=== PATIENT | male | born 1975 | race Caucasian/White ===

== ENCOUNTER 2024-04-28 12:47 | Inpatient (IN) | payer OTHER ==
[~2024-04-28] VITALS: Ht 177.8 cm; Wt 108.1 kg
[~2024-04-28 12:47] MED LIST: MONT10T PO; Norco 5-325 Ta1 EACH PO; Prednisone20 MG PO
[2024-04-28 14:12] LABS: BASOPHILS ABSOLUTE AUTO 0.05 K/mm3 (0.00-0.23); BASOPHILS PERCENT AUTO 0 % (0-2); EOSINOPHILS ABSOLUTE AUTO 0.03 K/mm3 (0.00-0.68); EOSINOPHILS PERCENT AUTO 0 % (0-6); Hematocrit 37.7 % (37.0-53.0); Hemoglobin 12.7 g/dL (13.5-17.5); IMMATURE GRAN ABSOLUTE AUTO 0.12 K/mm3 (0.00-0.10); IMMATURE GRAN PERCENT AUTO 1 % (0-1); LYMPHOCYTES ABSOLUTE AUTO 2.03 K/mm3 (0.84-5.20); LYMPHOCYTES PERCENT AUTO 12 % (21-46); MONOCYTES ABSOLUTE AUTO 1.36 K/mm3 (0.16-1.47); MONOCYTES PERCENT AUTO 8 % (4-13); Mean Corpuscular HGB 31.8 pg (26.0-34.0); Mean Corpuscular HGB Conc 33.7 g/dL (31.5-36.5); Mean Corpuscular Volume 95 fL (80-100); Mean Platelet Volume 10.4 fL (9.1-12.4); NEUTROPHILS ABSOLUTE AUTO 13.02 K/mm3 (1.96-9.15); NEUTROPHILS PERCENT AUTO 78 % (41-73); Platelet Count 254 K/mm3 (150-400); RDW Coefficient Variation 13.5 % (11.7-14.2); RDW Standard Deviation 46.9 fL (35.1-46.3); Red Blood Cell Count 3.99 M/mm3 (4.30-5.90); White Blood Cell Count 16.61 K/mm3 (4.00-11.30)
[2024-04-28 14:38] LABS: Albumin, Blood 2.8 g/dL (3.4-5.0); Albumin/Globulin Ratio 0.8 (0.8-1.8); Bilirubin, Total 0.7 mg/dL (0.1-1.0); Bun/Creatinine Ratio 21.4 (12.0-20.0); Calcium, Blood 8.3 mg/dL (8.5-10.1); Creatinine, Blood 0.89 mg/dL (0.60-1.20); Globulin, Blood 3.4 g/dL (2.2-4.0); Potassium, Blood 2.8 mmol/L (3.5-5.5); Total Protein, Blood 6.2 g/dL (6.4-8.2)
[2024-04-28] MEDS ORDERED: NS 1,000 ML IV SCH ×2 (17:10→20:00)
[2024-04-28] MEDS ORDERED: Ketorolac Tromethamine 15mg Vial IV ONE (17:15)
[2024-04-28] MEDS ORDERED: Doxycycline Hyclate 100 MG in Dextrose 5% 250 ML IV ONE (17:15)
[2024-04-28] MEDS ORDERED: CefTRIAXone Sodium 2,000 MG in NS 100 ML IV ONE (17:15)
[2024-04-28] MEDS ORDERED: PREG75 PO (18:47)
[2024-04-28] MEDS ORDERED: THERA-D2000 UNIT PO (18:47)
[2024-04-28] MEDS ORDERED: ALLO100 PO (18:48)
[2024-04-28] MEDS ORDERED: TIZA4 PO (18:48)
[2024-04-28] MEDS ORDERED: IBUP800 PO (18:48)
[2024-04-28] MEDS ORDERED: AMLO5 PO (18:49)
[2024-04-28] MEDS ORDERED: CYCL10 PO (18:49)
[2024-04-28] MEDS ORDERED: Prinivil10 MG PO (18:49)
[2024-04-28] MEDS ORDERED: Ondansetron HCl 2 MG / ML 2ML Vial IV PRN (19:55)
[2024-04-28] MEDS ORDERED: Acetaminophen 325 MG TABLET PO PRN (19:55)
[2024-04-28] MEDS ORDERED: Ipratropium/Albuterol SulF 2.5-0.5MG/3 ML Amp INH PRN (20:00)
[2024-04-28] MEDS ORDERED: Enoxaparin 40 MG/0.4 ML SYR SC SCH (20:00)
[2024-04-28] MEDS ORDERED: MethylPREDNISolone Sod Succ 125 MG Vial IV SCH (20:00)
[2024-04-28] MEDS ORDERED: Piperacillin/Tazobactam Sod 4.5 GM in NS 100 ML IV ONE (20:05)
[2024-04-28] MEDS ORDERED: Vancomycin HCL 1,750 MG in NS 500 ML IV ONE (20:10)
[2024-04-28] MEDS ORDERED: Azithromycin 500 MG in NS 250 ML IV SCH (21:00)
[2024-04-28] MEDS ORDERED: Potassium Chl 20MEQ/Water100ML 100 ML IV SCH (21:00)
[2024-04-28 21:50] LABS: Influenza A, PCR NEGATIVE (NEGATIVE); Influenza B, PCR NEGATIVE (NEGATIVE); Resp Syncytial Virus, PCR NEGATIVE (NEGATIVE); SARS-Cov-2 (COVID-19) PCR, MMC NEGATIVE (NEGATIVE)
[2024-04-28 22:13] VITALS: BP 167/100
[2024-04-28] MEDS ORDERED: FLONASE ALLERG9.9 ML (22:56)
[2024-04-28] MEDS ORDERED: ALBU2.5V5 INH (22:57)
[2024-04-28] MEDS ORDERED: TIOT18 INH (22:57)
[2024-04-28] MEDS ORDERED: MOME220I INH (22:58)
[2024-04-28] MEDS ORDERED: HYDROcodone 5-APAP 325 TAB PO PRN (23:25)
[2024-04-29] VITALS (9 sets, daily range): BP systolic 141–184; BP diastolic 92–117
[2024-04-29] MEDS ORDERED: Furosemide 10 MG/ML 4ML Vial IV ONE (01:40)
[2024-04-29] MEDS ORDERED: Furosemide 10 MG / ML 2ML Vial IV ONE (01:45)
--- NOTE | 2024-04-29 01:47 | NUR ---
ER ADMIT- Arrived at 2210 with BL pna/asthma exacerbation. C/o Left lef pain/swelling neg for DVT. CTA neg for PE, NSR on telemetry. bumped up to 4LNC due to hypoxia on 2LNC. PRN neb administered by RT. BL crackles in both lungs- received several antibiotics in ER and has 3+ LE edema- cone machine operator ordered lasix x 1. BP meds resumed due to htn, gave ok to give early if patient remains hypertensive after lasix administration. Patient very talkative and encouraged to rest/breath. PRN Gilmore given for L leg sciatica which is making the patient very uncomfortable.
--- NOTE | 2024-04-29 03:21 | NUR ---
Shift update- Patient got OOB to use the bathroom and took off oxygen- desats to 83% on RA and visibly SHob, extension tubing applied, educated to keep O2 on at all times. Patient saying PRN hydrocodone ineffective for sciatica. Due to patient's hypoxia and SHob encouraged to utilize non-phamaceutical pain control methods such as ice packs, repositoning, and encouraged to voice his concerns with the day physician since his sciatica is an ongoing issue.
[2024-04-29] MEDS ORDERED: Lisinopril 10 MG Tab PO SCH ×2 (04:00→09:00)
[2024-04-29] MEDS ORDERED: AmLODIPine Besylate 5 MG Tab PO SCH ×2 (04:00→09:00)
[2024-04-29 04:02] LABS: BASOPHILS ABSOLUTE AUTO 0.02 K/mm3 (0.00-0.23); BASOPHILS PERCENT AUTO 0 % (0-2); EOSINOPHILS PERCENT AUTO 0 % (0-6); Hematocrit 42.6 % (37.0-53.0); IMMATURE GRAN ABSOLUTE AUTO 0.05 K/mm3 (0.00-0.10); IMMATURE GRAN PERCENT AUTO 0 % (0-1); LYMPHOCYTES ABSOLUTE AUTO 0.37 K/mm3 (0.84-5.20); LYMPHOCYTES PERCENT AUTO 3 % (21-46); MONOCYTES ABSOLUTE AUTO 0.35 K/mm3 (0.16-1.47); MONOCYTES PERCENT AUTO 3 % (4-13); Mean Corpuscular HGB 31.4 pg (26.0-34.0); Mean Corpuscular HGB Conc 32.9 g/dL (31.5-36.5); Mean Corpuscular Volume 96 fL (80-100); Mean Platelet Volume 10.2 fL (9.1-12.4); NEUTROPHILS ABSOLUTE AUTO 11.72 K/mm3 (1.96-9.15); NEUTROPHILS PERCENT AUTO 94 % (41-73); Platelet Count 241 K/mm3 (150-400); RDW Coefficient Variation 13.6 % (11.7-14.2); RDW Standard Deviation 47.9 fL (35.1-46.3); Red Blood Cell Count 4.46 M/mm3 (4.30-5.90); White Blood Cell Count 12.51 K/mm3 (4.00-11.30)
[2024-04-29 04:23] LABS: Albumin, Blood 2.8 g/dL (3.4-5.0); Albumin/Globulin Ratio 0.7 (0.8-1.8); Bilirubin, Total 0.8 mg/dL (0.1-1.0); Bun/Creatinine Ratio 26.7 (12.0-20.0); Calcium, Blood 8.6 mg/dL (8.5-10.1); Creatinine, Blood 0.75 mg/dL (0.60-1.20); Globulin, Blood 4.1 g/dL (2.2-4.0); Potassium, Blood 3.5 mmol/L (3.5-5.5); Total Protein, Blood 6.9 g/dL (6.4-8.2)
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
[2024-04-29] MEDS ORDERED: Piperacillin/Tazobactam Sod 4.5 GM in NS 100 ML IV SCH (06:00)
[2024-04-29] MEDS ORDERED: Vancomycin HCL 1,250 MG in NS 250 ML IV SCH (06:00)
--- NOTE | 2024-04-29 06:51 | NUR ---
Patient woke up SHob- sat up and started messing with cords/linen/stuff on his table and had GARCIA- encouraged to rest his lungs and rest again. O2 supplementation increased to 4LNC to meet O2 needs. RT called to request a breathing treatment, will be by when able. Audible crackles due to BL PNA continue. Reinforcement needed when it comes to educating the patient on conserving his energy.
[2024-04-29] MEDS ORDERED: Insulin Human Lispro 100 Units/ML 3ML Syringe SC SCH (07:30)
--- NOTE | 2024-04-29 08:25 | NUR ---
DR GRIGGS CALLED TO BEDSIDE, IV FLUIDS ARE D/C AT THIS TIME, NEW ORDERS ARE PLACED BY DR WOOTEN
[2024-04-29] MEDS ORDERED: Furosemide 10 MG/ML 4ML Vial IV SCH ×2 (09:00→18:00)
[2024-04-29] MEDS ORDERED: Pregabalin 75 MG Cap PO SCH (09:00)
[2024-04-29] MEDS ORDERED: Ketorolac Tromethamine 30mg Vial IM ONE (09:00)
[2024-04-29 16:05] LABS: Bun/Creatinine Ratio 28.6 (12.0-20.0); Calcium, Blood 8.9 mg/dL (8.5-10.1); Creatinine, Blood 0.84 mg/dL (0.60-1.20); Potassium, Blood 3.4 mmol/L (3.5-5.5)
[2024-04-29] MEDS ORDERED: Potassium Chloride 20 MEQ TabCR PO ONE (16:25)
[2024-04-29] MEDS ORDERED: TiZANidine HCl 4 MG Tab PO PRN (16:30)
[2024-04-29] MEDS ORDERED: CefTRIAXone Sodium 1,000 MG in NS 100 ML IV SCH (18:00)
[2024-04-29] MEDS ORDERED: Montelukast Sodium 10 MG Tab PO SCH (21:00)
[2024-04-29] MEDS ORDERED: Lactobacil 2-S.Thermo-Bifido 1 1 Cap PO SCH (21:00)
[2024-04-29 21:57] LABS: Vancomycin, Trough 20.5 ug/mL (5.0-10.0)
[2024-04-29] MEDS ORDERED: Vancomycin HCL 1,500 MG in NS 250 ML IV SCH (23:00)
[2024-04-30] VITALS (7 sets, daily range): BP systolic 140–185; BP diastolic 98–122
--- NOTE | 2024-04-30 02:31 | NUR ---
SHIFT SUMMARY NEURO: SCIATICA PAIN IN L LEG OTHERWISE WNL CARDIAC: TACHY AND HYPERTENSIVE. 12 BEAT RUN OF VTACH. MAG AND LABS BEING DRAWN IN AM. NO CP. +2 PITTING EDEMA BLE LUNGS: COARSE UPPER LOBES. ON 4L NC. USING FLUTTER VALVE. NO WHEEZES HEARD THIS SHIFT. GI/: WNL SKIN: FLUSHED. DRY. VANC TROUGH ELEVATED, DOSE ADJUSTED. PT REFUSING NEW IV AT THIS TIME. HEATING PAD APPLIED FOR SCIATICA PAIN WITH RELIEF PER PT.
[2024-04-30 03:57] LABS: BASOPHILS ABSOLUTE AUTO 0.02 K/mm3 (0.00-0.23); BASOPHILS PERCENT AUTO 0 % (0-2); EOSINOPHILS ABSOLUTE AUTO 0.01 K/mm3 (0.00-0.68); EOSINOPHILS PERCENT AUTO 0 % (0-6); Hemoglobin 13.8 g/dL (13.5-17.5); IMMATURE GRAN ABSOLUTE AUTO 0.09 K/mm3 (0.00-0.10); IMMATURE GRAN PERCENT AUTO 1 % (0-1); LYMPHOCYTES PERCENT AUTO 3 % (21-46); MONOCYTES ABSOLUTE AUTO 0.69 K/mm3 (0.16-1.47); MONOCYTES PERCENT AUTO 4 % (4-13); Mean Corpuscular HGB 31.7 pg (26.0-34.0); Mean Corpuscular HGB Conc 32.9 g/dL (31.5-36.5); Mean Corpuscular Volume 97 fL (80-100); Mean Platelet Volume 10.5 fL (9.1-12.4); NEUTROPHILS ABSOLUTE AUTO 16.31 K/mm3 (1.96-9.15); NEUTROPHILS PERCENT AUTO 92 % (41-73); Platelet Count 269 K/mm3 (150-400); RDW Coefficient Variation 13.6 % (11.7-14.2); RDW Standard Deviation 48.6 fL (35.1-46.3); Red Blood Cell Count 4.35 M/mm3 (4.30-5.90); White Blood Cell Count 17.72 K/mm3 (4.00-11.30)
[2024-04-30 04:56] LABS: Bun/Creatinine Ratio 31.7 (12.0-20.0); Calcium, Blood 8.9 mg/dL (8.5-10.1); Creatinine, Blood 0.88 mg/dL (0.60-1.20); Magnesium, Blood 2.3 mg/dL (1.6-2.4); Phosphorus, Blood 3.9 mg/dL (2.5-4.9); Potassium, Blood 4.1 mmol/L (3.5-5.5)
[2024-04-30] MEDS ORDERED: Lisinopril 10 MG Tab PO ONE (09:00)
[2024-04-30] MEDS ORDERED: AmLODIPine Besylate 5 MG Tab PO SCH ×2 (09:00)
[2024-04-30] MEDS ORDERED: Allopurinol 100 MG Tab PO SCH (09:00)
[2024-04-30] MEDS ORDERED: Lisinopril 20 MG Tab PO SCH (09:00)
[2024-04-30] MEDS ORDERED: Ketorolac Tromethamine 30mg Vial IM PRN (09:30)
--- NOTE | 2024-04-30 10:39 | NUR ---
DURING MORNING ASSESSMENT WITH DR BURGOS PT WAS NOTED TO BE RESTING WITH EYES CLOSED, NADN WITH SPO2 96% WITH BIPAP IN PLACE. PT WAS AWOKEN FROM SLEEP BY DR BURGOS PT IMMEDIATELY BEGAN SCREAMING STATING THAT SCIATIC PAIN WAS VERY INTENSE, HE IS YELLING AT STAFF "I NEED SHOT, I'M REALLY IN PAIN" HE BEGIN HYPERVENTILATING AND MOVING AROUND IN BED. NONE OF THISE CURRENT BEHAVIOR WAS NOTED PRIOR TO PT BEING WOKEN UP. DR BEGAN WITH ASKING PSYCH QUESTIONS PT BECAME VERY DEFENSIVE ABOUT THESE QUESTIONS. PT ASKED TO BE TAKEN OFF OF BIPAP AND TO BE PLACED ON NASAL CANNULA, SPO2 WAS DIFFICULT TO MAINTAIN GREATER THAN 87% ON NASAL CANNULA PT IS REULCATANT TO BE RETURNED TO BIPAP.
[2024-04-30] MEDS ORDERED: Atenolol 25 MG Tab PO SCH (13:00)
--- NOTE | 2024-04-30 13:28 | NUR ---
PT IS CURRENTLY RESTING WITH EYES CLOSED POSITIONED ON RIGHT SIDE. HE IS ON BIPAP AT THIS TIME WHICH HE APPEARS TO BE TOLERATING WELL. SPO2 92% AT THE TIME OF THIS NOTE, HR [address] BOBO IS CALLED AT THIS TIME TO ENQUIRE ABOUT ANXIETY MEDICATIONS NEEDED, HE WILL BE PLACING NEW ORDERS FOR ANXIETY
[2024-04-30] MEDS ORDERED: CefTRIAXone Sodium 1,000 MG in NS 100 ML IV SCH (16:00)
[2024-04-30] MEDS ORDERED: Azithromycin 500 MG in NS 250 ML IV SCH (16:00)
[2024-04-30] MEDS ORDERED: HyDROXyzine HCl 25 MG Tab PO ONE (16:15)
--- NOTE | 2024-04-30 18:17 | NUR ---
PT IS NOW RESTING WELL IN BED WATCHING TV WITH S/O. VSS. BLOOD PRESSURE HAS DECREASED SINCE STARTING ATENOLOL. HE IS NOW ON 6L O2 VIA NASAL CANNULA WHICH HE IS TOLERATING WELL
[2024-04-30] MEDS ORDERED: Ipratropium/Albuterol SulF 2.5-0.5MG/3 ML Amp INH SCH (19:00)
[2024-04-30] MEDS ORDERED: GuaiFENesin 600 MG TabCR PO PRN (23:30)
[2024-05-01] VITALS (10 sets, daily range): BP systolic 135–184; BP diastolic 68–116
[2024-05-01] MEDS ORDERED: HydrALAZINE HCl 20 MG / ML 1ML Vial IV ONE (01:00)
[2024-05-01 04:11] LABS: BASOPHILS ABSOLUTE AUTO 0.02 K/mm3 (0.00-0.23); BASOPHILS PERCENT AUTO 0 % (0-2); EOSINOPHILS PERCENT AUTO 0 % (0-6); Hematocrit 37.7 % (37.0-53.0); Hemoglobin 12.5 g/dL (13.5-17.5); IMMATURE GRAN ABSOLUTE AUTO 0.13 K/mm3 (0.00-0.10); IMMATURE GRAN PERCENT AUTO 1 % (0-1); LYMPHOCYTES ABSOLUTE AUTO 0.57 K/mm3 (0.84-5.20); LYMPHOCYTES PERCENT AUTO 3 % (21-46); MONOCYTES ABSOLUTE AUTO 0.74 K/mm3 (0.16-1.47); MONOCYTES PERCENT AUTO 4 % (4-13); Mean Corpuscular HGB 31.6 pg (26.0-34.0); Mean Corpuscular HGB Conc 33.2 g/dL (31.5-36.5); Mean Corpuscular Volume 95 fL (80-100); Mean Platelet Volume 10.6 fL (9.1-12.4); NEUTROPHILS ABSOLUTE AUTO 16.39 K/mm3 (1.96-9.15); NEUTROPHILS PERCENT AUTO 92 % (41-73); Platelet Count 268 K/mm3 (150-400); RDW Coefficient Variation 13.8 % (11.7-14.2); RDW Standard Deviation 48.7 fL (35.1-46.3); Red Blood Cell Count 3.95 M/mm3 (4.30-5.90); White Blood Cell Count 17.85 K/mm3 (4.00-11.30)
[2024-05-01] MEDS ORDERED: Furosemide 10 MG/ML 4ML Vial IV SCH (09:00)
--- NOTE | 2024-05-01 09:45 | NUR ---
UPDATE PT RESTING ON HIS SIDE WITH BIPAP ON AT 10 50% FIO2. RR 20'S. HR 80'S. THIS RN WAKES PATIENT TO GIVEN AM MEDS. PT TAKEN OFF BIPAP AND PLACED ON 15L NC. ORAL CARE DONE WITH ASSISTANCE. O2 SATS DROP TO MID 80'S. PT REQUESTING BIPAP BE PUT BACK ON. PT TOOK APPROXIMATELY 10 MINUTES FOR SATS TO COME UP TO 90%.
[2024-05-01 10:22] LABS: SARS-Cov-2 (COVID-19) PCR, MMC NEGATIVE (NEGATIVE)
[2024-05-01] MEDS ORDERED: Azithromycin 250 MG Tab PO SCH (11:00)
[2024-05-01 11:28] LABS: Adenovirus Not Detected (NOT DETECT); Bordetella pertussis Not Detected (NOT DETECT); Chlamydophila pneumoniae Not Detected (NOT DETECT); Coronavirus 229E Not Detected (NOT DETECT); Coronavirus HKU1 Not Detected (NOT DETECT); Coronavirus NL63 Not Detected (NOT DETECT); Coronavirus OC43 Not Detected (NOT DETECT); Human Metapneumovirus Not Detected (NOT DETECT); Human Rhinovirus/Enterovirus Not Detected (NOT DETECT); Influenza A/2009-H1 Not Detected (NOT DETECT); Influenza A/H1 Not Detected (NOT DETECT); Influenza A/H3 Not Detected (NOT DETECT); Influenza B Not Detected (NOT DETECT); Mycoplasma pneumoniae Not Detected (NOT DETECT); Parainfluenza Virus 1 Not Detected (NOT DETECT); Parainfluenza Virus 2 Not Detected (NOT DETECT); Parainfluenza Virus 3 Not Detected (NOT DETECT); Parainfluenza Virus 4 Not Detected (NOT DETECT); Respiratory Syncytial Virus Not Detected (NOT DETECT); SARS-Cov-2 (COVID-19), BioFire Not Detected (NOT DETECT)
[2024-05-01] MEDS ORDERED: Vancomycin HCL 1,750 MG in NS 500 ML IV ONE (11:50)
[2024-05-01] MEDS ORDERED: Piperacillin/Tazobactam Sod 4.5 GM in NS 100 ML IV SCH (12:00)
[2024-05-01] MEDS ORDERED: Metolazone 5 MG Tab PO SCH (12:00)
[2024-05-01] MEDS ORDERED: NS 250 ML IV PRN (12:05)
[2024-05-01] MEDS ORDERED: Furosemide 10 MG / ML 2ML Vial IV SCH (15:00)
--- NOTE | 2024-05-01 16:59 | NUR ---
SHIFT SUMMARY PT REMAINS ALERT AND ORIENTED. BP REMAINS ELEVATED, BUT IMPROVED. HR REMAINS NSR 80'S. PT HAS BEEN ON BIPAP ALL SHIFT SETTINGS NOW 10/8 60% FIO2. RR 20-30'S. PT SITTING UP AT EDGE OF BED MOST OF AFTERNOON. [place] [facility] [place]. PT TOOK 10-15 MIN TO RECOVER FROM ACTIVITY AND SATS TO COME ABOVE 90%. PT COMPLAINED OF PAIN TO "SCIATICA" ON AND OFF THROUGHOUT SHIFT. PT MEDICATED FOR PAIN AND HEATING PAD APPLIED REQUESTED. PT VOIDING USING URINAL AT BEDSIDE. WILL CONTINUE PLAN OF CARE UNTIL REPORT OFF TO ONCOMING RN
[2024-05-01] MEDS ORDERED: Pregabalin 75 MG Cap PO SCH (21:00)
[2024-05-02] VITALS (21 sets, daily range): BP systolic 123–162; BP diastolic 77–99
[2024-05-02] MEDS ORDERED: Vancomycin HCL 1,500 MG in NS 250 ML IV SCH (01:00)
[2024-05-02 04:35] LABS: BASOPHILS ABSOLUTE AUTO 0.02 K/mm3 (0.00-0.23); BASOPHILS PERCENT AUTO 0 % (0-2); EOSINOPHILS ABSOLUTE AUTO 0.01 K/mm3 (0.00-0.68); EOSINOPHILS PERCENT AUTO 0 % (0-6); Hematocrit 38.6 % (37.0-53.0); Hemoglobin 12.9 g/dL (13.5-17.5); IMMATURE GRAN ABSOLUTE AUTO 0.05 K/mm3 (0.00-0.10); IMMATURE GRAN PERCENT AUTO 0 % (0-1); LYMPHOCYTES ABSOLUTE AUTO 1.29 K/mm3 (0.84-5.20); LYMPHOCYTES PERCENT AUTO 9 % (21-46); MONOCYTES ABSOLUTE AUTO 0.62 K/mm3 (0.16-1.47); MONOCYTES PERCENT AUTO 4 % (4-13); Mean Corpuscular HGB Conc 33.4 g/dL (31.5-36.5); Mean Corpuscular Volume 96 fL (80-100); Mean Platelet Volume 10.6 fL (9.1-12.4); NEUTROPHILS ABSOLUTE AUTO 12.28 K/mm3 (1.96-9.15); NEUTROPHILS PERCENT AUTO 86 % (41-73); Platelet Count 252 K/mm3 (150-400); RDW Coefficient Variation 13.5 % (11.7-14.2); RDW Standard Deviation 48.1 fL (35.1-46.3); Red Blood Cell Count 4.03 M/mm3 (4.30-5.90); White Blood Cell Count 14.27 K/mm3 (4.00-11.30)
[2024-05-02 04:54] LABS: Calcium, Blood 8.4 mg/dL (8.5-10.1); Creatinine, Blood 1.09 mg/dL (0.60-1.20); Potassium, Blood 3.4 mmol/L (3.5-5.5)
--- NOTE | 2024-05-02 05:17 | NUR ---
PT REQUESTING NERVE BLOCK TO MANAGE SCIATIC PAIN
--- NOTE | 2024-05-02 06:02 | NUR ---
SHIFT SUMMARY NEURO; A/OX4 CARDIAC: HTN, +2 BLE EDEMA LUNGS: BIPAP SETTINGS INCREASED. PT RECIEVING FREQUENT RESCUE BREATHS WITH 100%. RESPIRATORY AWARE. GI/: EXTERNAL CATHETER IN PLACE DT SOB POWER GLIDE PLACED. PT REQUESTING CHIROPRACTOR AND A NERVE BLOCK FOR LEFT LED. PT IS ADAMANT IT IS SCIATIC PAIN. PRN'S GIVEN.
--- NOTE | 2024-05-02 06:36 | NUR ---
ARRIVAL FROM PCU PT ARRIVED FROM PCU AT APPROX 0630, REPORT GIVEN AT BEDSIDE. PT A/O X4, ANXIOUS. PT COMPLAINING OF SEVERE PAIN IN LEFT BACK, PT STATES ITS HIS SCIATICA. PT ON BIPAP, SETTINGS 16/12 FiO2 100%. O2 SATS > 90%. LUNGS COARSE T/O. PT TACHYPNEIC UPON ARRIVAL. CARDIAC MONITORING REFLECTS NSR, HR 80s. SBP 130s. PG TO RY AND PIV PATENT. BLE +2 EDEMA.
[2024-05-02] MEDS ORDERED: Potassium Chloride 10 Meq Tablet SA PO ONE (07:25)
[2024-05-02] MEDS ORDERED: Potassium Chl 20MEQ/Water100ML 100 ML IV STA (08:24)
[2024-05-02] MEDS ORDERED: MethylPREDNISolone Sod Succ 40 MG VIAL IV SCH (09:00)
[2024-05-02] MEDS ORDERED: MethylPREDNISolone Sod Succ 125 MG Vial IV SCH (09:00)
[2024-05-02 12:33] LABS: Albumin, Blood 2.2 g/dL (3.4-5.0); Anion Gap 11 mmol/L (3-11); Blood Urea Nitrogen 32 mg/dL (8-24); Bun/Creatinine Ratio 32.7 (12.0-20.0); CO2, Blood 30 mmol/L (21-32); Calcium, Blood 8.3 mg/dL (8.5-10.1); Chloride, Blood 101 mmol/L (98-108); Creatinine, Blood 0.98 mg/dL (0.60-1.20); Glomerular Filtration Rate 95 (60-); Glucose, Blood 120 mg/dL (70-99); Magnesium, Blood 1.9 mg/dL (1.6-2.4); Phosphorus, Blood 3.4 mg/dL (2.5-4.9); Potassium, Blood 3.7 mmol/L (3.5-5.5); Sodium, Blood 138 mmol/L (136-145)
[2024-05-02] MEDS ORDERED: Nystatin 100,000 Unit/ML Susp 5 ML UDC PO SCH (13:00)
[2024-05-02] MEDS ORDERED: Pantoprazole Sodium 40 MG Injection IV SCH (13:05)
--- NOTE | 2024-05-02 18:55 | NUR ---
DAY SHIFT SUMMARY PT HAS REMAINED ALERT AND ORIENTED THIS SHIFT. PT W SEVERE PAIN IN HIS LOWER BACK THIS AM BUT HE REPORTED RELIEF LATER IN THE SHIFT AFTER RECIEVING APIN MEDICATIONS INCLUDING TORADOL. PT WORE BIPAP 16/12 W 80% FIO2 MOST OF THE DAY TAKING BREAKS W AIRVO 60L AND 94% FOR MEALS AND MEDS. PT DOES DEATS INTO THE 70'S W ACTIVITYBUT RECOVERS W REST ON THE BIPAP. BP STABLE. MONITOR SHOWING SR 70'S-80'S THIS SHIFT. PT AFEBRILE THIS SHIFT. PT TOLERATING PO INTAKE WELL. AM LOVENOX HELD DUE TO HEMATOMA ON HIS ABDOMEN PER DR. NASH. WILL REPORT TO ONCOMING RN.
--- NOTE | 2024-05-02 20:00 | NUR ---
ASSUMED CARE CARE WAS ASSUMED AT PT AT APPROX 1900. PT A/O X4, ABLE TO ANSWER QUESTIONS APPROPRIATELY. PT ABLE TO REPOSITION IN BED INDEPENDENTLY. MALE PUREWICK IN PLACE. PT ON BIPAP, 01/08, FiO2 70%. O2 SATS > 90%. CARDIAC MONITORING REFLECTS NSR, HR 70s. SBP 130s-140s. PG TO RY PATENT, NS TKO INFUSING. PIV TO LFA SL. KELSEA HOSE IN PLACE BLE.
[2024-05-03] VITALS (19 sets, daily range): BP systolic 112–196; BP diastolic 68–114
[2024-05-03] MEDS ORDERED: Furosemide 10 MG / ML 2ML Vial IV SCH (05:00)
[2024-05-03 05:51] LABS: BASOPHILS ABSOLUTE AUTO 0.01 K/mm3 (0.00-0.23); BASOPHILS PERCENT AUTO 0 % (0-2); EOSINOPHILS ABSOLUTE AUTO 0.26 K/mm3 (0.00-0.68); EOSINOPHILS PERCENT AUTO 2 % (0-6); Hematocrit 37.5 % (37.0-53.0); Hemoglobin 12.6 g/dL (13.5-17.5); IMMATURE GRAN ABSOLUTE AUTO 0.07 K/mm3 (0.00-0.10); IMMATURE GRAN PERCENT AUTO 1 % (0-1); LYMPHOCYTES ABSOLUTE AUTO 1.12 K/mm3 (0.84-5.20); LYMPHOCYTES PERCENT AUTO 9 % (21-46); MONOCYTES ABSOLUTE AUTO 0.47 K/mm3 (0.16-1.47); MONOCYTES PERCENT AUTO 4 % (4-13); Mean Corpuscular HGB 31.6 pg (26.0-34.0); Mean Corpuscular HGB Conc 33.6 g/dL (31.5-36.5); Mean Corpuscular Volume 94 fL (80-100); Mean Platelet Volume 10.4 fL (9.1-12.4); NEUTROPHILS PERCENT AUTO 85 % (41-73); Platelet Count 224 K/mm3 (150-400); RDW Coefficient Variation 13.2 % (11.7-14.2); RDW Standard Deviation 45.9 fL (35.1-46.3); Red Blood Cell Count 3.99 M/mm3 (4.30-5.90); White Blood Cell Count 13.03 K/mm3 (4.00-11.30)
--- NOTE | 2024-05-03 05:58 | NUR ---
SHIFT SUMMARY NO ACUTE CHANGES THIS SHIFT. PT REMAINS A/O x4, ABLE TO REPOSITION IN BED INDEPENDENTLY AND USE CALL LIGHT APPROPRIATELY. BIPAP SETTINGS 16/12, FiO2 45%. O2 SATS > 90% BUT PT DOES DESATURATE WITH ACTIVITY. CARDIAC MONITORING REFLECTS NSR, HR 90s. MALE PUREWICK IN PLACE. PG TO RY INFUSING NS TKO. PIV SL. PT TOLERATED BREAK FROM BIPAP THIS SHIFT ON AIRVO.
[2024-05-03 06:19] LABS: Bun/Creatinine Ratio 30.7 (12.0-20.0); Calcium, Blood 8.6 mg/dL (8.5-10.1); Creatinine, Blood 1.01 mg/dL (0.60-1.20); Phosphorus, Blood 2.8 mg/dL (2.5-4.9); Potassium, Blood 3.1 mmol/L (3.5-5.5)
[2024-05-03] MEDS ORDERED: Potassium Chloride 20 MEQ TabCR PO ONE ×2 (06:30→10:45)
--- NOTE | 2024-05-03 11:06 | NUR ---
AM NOTE... ASSUMED CARE OF PT AT 0700, PT IS STABLE ON THE BIPAP AT 16/12 AND 45% WITH O2 SATS>90%. PT'S VS STABLE HE IS IN SR INT HE 80'S MAPS>65. PT USES THE AIRVO FOR MEALS AND TAKING PILLS. PT IS ABLE TO TRANSFER TO THE BSC WITH RECOVERY ON THE BIPAP. WILL CONTINUE TO MONITOR.
[2024-05-03 15:37] LABS: Bun/Creatinine Ratio 28.2 (12.0-20.0); Calcium, Blood 8.9 mg/dL (8.5-10.1); Creatinine, Blood 0.92 mg/dL (0.60-1.20); Potassium, Blood 3.8 mmol/L (3.5-5.5)
--- NOTE | 2024-05-03 18:20 | NUR ---
PT ARRIVED TO PCU07 VIA WHEELCHAIR FROM ICU04. PT IS A&OX4, CALM AND COOPERATIVE WITH CARE, PLEASANT. PT'S S.O. AT BEDSIDE. PT ORIENTED TO CALL LIGHT, ROOM AND UNIT ROUTINES. CONTINUOUS TELEMETRY AND PULSE OX IN PLACE. PT DENIES ANY NEEDS. PT IS ABLE TO STAND AND TRANSFER FROM THE WHEELCHAIR TO THE RECLINER CHAIR W/O DIFFICULTY. PT AND S.O. ARE WATCHING TV, NO NEEDS IDENTIFIED. CALL LIGHT IN REACH, CHAIR LOCKED, BED IN LOWEST LOCKED POSITION. WILL CONTINUE TO MONITOR AND GIVE REPORT TO NOC SHIFT RN.
--- NOTE | 2024-05-03 19:07 | NUR ---
PER DR RANDOLPH, HOLD [facility], MEDICINE TEAM WILL RE-EVALUATE NEED IN THE MORNING.
--- NOTE | 2024-05-03 23:33 | NUR ---
CT CHEST ORDER DISCONTINUED- NEED NOT CLARIFIED BY DAY PHYSCIAN, PER CT, CAN BE RE-ORDERED BY DAY PHYSICIAN ON THURSDAY IF MEDICALLY NECESSARY. CT CHEST ALREADY PERFORMED RECENTLY.
[2024-05-04] VITALS (9 sets, daily range): BP systolic 126–180; BP diastolic 69–108
--- NOTE | 2024-05-04 05:20 | NUR ---
SHIFT SUMMARY- PATIENT STARTED OUT WITH 8L HFNC, O2 SATS LABILE BETWEEN LOW 80S-MID 90S DEPENDING ON PATIENT'S ACTIVITY AND WOB. ENCOURAGED TO CONSERVE ENERGY AND LIMIT HIS FLUID INTAKE DUE TO BEING ON LASIX FOR FLUID OVERLOAD. PATIENT REQUESTING BIPAP WHEN HE WENT TO SLEEP- CURRENTLY ON 50% FIO2 O2 SATS WNL. PRN NEBS, SOLUMEDROL, ANTIBIOTICS CONTINUED. PRN NORCO/ZANAFLEX/TORADOL GIVEN X 1 FOR SCIATICA. PLAN IS TO WEAN O2 ABLE AND CONTINUE DIURESIS. PATIENT GETTING OOB WITH SBA.
[2024-05-04 06:34] LABS: Hematocrit 35.8 % (37.0-53.0); Mean Corpuscular HGB 31.3 pg (26.0-34.0); Mean Corpuscular HGB Conc 33.5 g/dL (31.5-36.5); Mean Corpuscular Volume 93 fL (80-100); Mean Platelet Volume 10.8 fL (9.1-12.4); Platelet Count 222 K/mm3 (150-400); RDW Coefficient Variation 12.7 % (11.7-14.2); RDW Standard Deviation 43.7 fL (35.1-46.3); Red Blood Cell Count 3.84 M/mm3 (4.30-5.90); White Blood Cell Count 13.13 K/mm3 (4.00-11.30)
[2024-05-04] MEDS ORDERED: Furosemide 10 MG / ML 2ML Vial IV ONE (06:35)
--- NOTE | 2024-05-04 06:51 | NUR ---
SHIFT UPDATE- PATIENT'S O2 REQUIREMENTS ON BIPAP INCREASING THIS AM- RT AT BEDSIDE, FIO2 UP TO 90% ON BIPAP. COMMERCIAL SERVICE TECHNICIAN RESIDENT NOTIFIED OF LUNG SOUNDS- CRACKLES- POSSIBLE FLUID OVERLOAD AGAIN, ALSO NOTIFIED OF O2 REQUIREMENTS INCREASING. RECEIVED ONE TIME ORDER FOR 20MG IV LASIX. FALAFEL CART COOK ALSO NOTIFIED OF CHANGE IN PATIENT'S STATUS.
[2024-05-04 06:55] LABS: Bun/Creatinine Ratio 24.9 (12.0-20.0); Calcium, Blood 8.5 mg/dL (8.5-10.1); Creatinine, Blood 0.88 mg/dL (0.60-1.20); Potassium, Blood 2.8 mmol/L (3.5-5.5)
[2024-05-04] MEDS ORDERED: Potassium Chloride 20 MEQ TabCR PO ONE ×3 (07:40→17:05)
[2024-05-04] MEDS ORDERED: Potassium Chl 20MEQ/Water100ML 100 ML IV SCH (07:50)
--- NOTE | 2024-05-04 10:36 | NUR ---
ASSUMPTION OF CARE Assumed care at 0700. a/o, mildy anxious, cooperative with care. Repostions independently, occasinal assistance required with line managment. C/o sciatica related pain, treating with postioning and meds as ordered. Skin intact, no breakdown noted. NSR, SBP 130's prior to am meds, no c/o cp/pressure, BLE edema 3+. At intial assesment bipap in place with settings of 18/12, rate 18, fio2 90%, o2 sat low to mid 90's, respiration shallow and rapid with minial exertion. L/s dim t/o, no noted cough. abd obese, bt+, voiding w/o difficutly using urinal. PG RY, abx infusing as scheduled, otherwise s/l. At start of shift pt was experiencing mild respiratory distress, pmd notified, new d/o recieved. IV lasix adminsistered as odrdered, diuresing well. Tolereated short BIPAP break for breakfest and AM meds on 10L NC. Placed back on BIPAP, respiratory status improving, current settings 16/10, rate 18, fio2 60%, o2 sat 90%. pt resting comfortably with BIPAP in place, seen by physicians, K+ replaced as ordered. Pt denies any curretn needs or questions reguarding plan of care, call light in reach, continue to monitor for changes.
[2024-05-04 14:34] LABS: Bun/Creatinine Ratio 21.3 (12.0-20.0); Calcium, Blood 8.7 mg/dL (8.5-10.1); Creatinine, Blood 0.94 mg/dL (0.60-1.20); Potassium, Blood 3.3 mmol/L (3.5-5.5)
[2024-05-04] MEDS ORDERED: Potassium Chloride 20 MEQ TabCR PO SCH (16:00)
[2024-05-04] MEDS ORDERED: Furosemide 10 MG / ML 2ML Vial IV SCH (16:00)
--- NOTE | 2024-05-04 17:32 | NUR ---
Shift Summary: RT continued to titrate down BIPAP seettings t/o shift, respiratory status much improved from this am. Diuresed well, with u/o >3500. Currently oob, in chair having supper. 11L HF NC, O2 sat uppers 80's low 90's. Pt at times not compliant with respiratory treatment reccomendations, possibly due to intermittent anxiety. S/O at bedside, pt and family deny an current questions/needs. Call light in reach, will monitor and give report to juanis RN.
[2024-05-04 22:42] LABS: Bun/Creatinine Ratio 18.8 (12.0-20.0); Calcium, Blood 8.8 mg/dL (8.5-10.1); Creatinine, Blood 1.01 mg/dL (0.60-1.20); Potassium, Blood 3.6 mmol/L (3.5-5.5)
[2024-05-05 03:17] VITALS: BP 151/98
[2024-05-05 04:14] LABS: BASOPHILS ABSOLUTE AUTO 0.02 K/mm3 (0.00-0.23); BASOPHILS PERCENT AUTO 0 % (0-2); EOSINOPHILS ABSOLUTE AUTO 0.72 K/mm3 (0.00-0.68); EOSINOPHILS PERCENT AUTO 8 % (0-6); Hematocrit 37.6 % (37.0-53.0); Hemoglobin 12.2 g/dL (13.5-17.5); IMMATURE GRAN ABSOLUTE AUTO 0.03 K/mm3 (0.00-0.10); IMMATURE GRAN PERCENT AUTO 0 % (0-1); LYMPHOCYTES ABSOLUTE AUTO 1.14 K/mm3 (0.84-5.20); LYMPHOCYTES PERCENT AUTO 12 % (21-46); MONOCYTES ABSOLUTE AUTO 0.56 K/mm3 (0.16-1.47); MONOCYTES PERCENT AUTO 6 % (4-13); Mean Corpuscular HGB Conc 32.4 g/dL (31.5-36.5); Mean Corpuscular Volume 96 fL (80-100); Mean Platelet Volume 10.8 fL (9.1-12.4); NEUTROPHILS ABSOLUTE AUTO 7.12 K/mm3 (1.96-9.15); NEUTROPHILS PERCENT AUTO 74 % (41-73); Platelet Count 242 K/mm3 (150-400); RDW Coefficient Variation 12.8 % (11.7-14.2); RDW Standard Deviation 45.6 fL (35.1-46.3); Red Blood Cell Count 3.93 M/mm3 (4.30-5.90); White Blood Cell Count 9.59 K/mm3 (4.00-11.30)
[2024-05-05 04:48] LABS: Albumin, Blood 2.3 g/dL (3.4-5.0); Albumin/Globulin Ratio 0.6 (0.8-1.8); Bilirubin, Total 1.4 mg/dL (0.1-1.0); Bun/Creatinine Ratio 18.3 (12.0-20.0); Calcium, Blood 8.8 mg/dL (8.5-10.1); Creatinine, Blood 1.15 mg/dL (0.60-1.20); Globulin, Blood 4.1 g/dL (2.2-4.0); Potassium, Blood 3.5 mmol/L (3.5-5.5); Total Protein, Blood 6.4 g/dL (6.4-8.2)
--- NOTE | 2024-05-05 04:55 | NUR ---
SHIFT SUMMARY PT A&O X4, ABLE TO MAKE NEEDS KNOWN, COOPERATIVE WITH CARES, ALTHOUGH HE EXPRESSES FRUSTRATIONS WITH BEING IN THE HOSPITAL. VSS, AFEBRILE, SPO2 >90% 8L HFNC OR BIPAP WITH FIO2 45%. SCIATIC PAIN MEDICATED PER EMAR. PT EDUCATED ON IMPORTANCE OF FLUID RESTRICTION. NO ACUTE EVENTS THIS SHIFT. PT IS RESTING QUIETLY IN BED, CALL LIGHT IN REACH, BREATHING EVEN AND UNLABORED.
[2024-05-05 09:16] VITALS: BP 149/85
--- NOTE | 2024-05-05 10:05 | NUR ---
Pt states that he does not vape.
[2024-05-05] MEDS ORDERED: Ipratropium/Albuterol SulF 2.5-0.5MG/3 ML Amp INH PRN (12:00)
[2024-05-05 12:34] VITALS: BP 127/76
[2024-05-05 16:08] VITALS: BP 145/97
--- NOTE | 2024-05-05 17:11 | NUR ---
Pt was given Tylenol at this time for fever 101
[2024-05-05 19:27] VITALS: BP 137/83
[2024-05-05 20:35] LABS: Bun/Creatinine Ratio 21.8 (12.0-20.0); Calcium, Blood 8.8 mg/dL (8.5-10.1); Creatinine, Blood 1.1 mg/dL (0.60-1.20); Potassium, Blood 3.6 mmol/L (3.5-5.5)
[2024-05-05 23:45] VITALS: BP 167/100
[2024-05-06 03:39] VITALS: BP 145/85
[2024-05-06 04:18] LABS: BASOPHILS ABSOLUTE AUTO 0.02 K/mm3 (0.00-0.23); BASOPHILS PERCENT AUTO 0 % (0-2); EOSINOPHILS ABSOLUTE AUTO 0.67 K/mm3 (0.00-0.68); EOSINOPHILS PERCENT AUTO 6 % (0-6); Hematocrit 37.5 % (37.0-53.0); Hemoglobin 12.5 g/dL (13.5-17.5); IMMATURE GRAN ABSOLUTE AUTO 0.05 K/mm3 (0.00-0.10); IMMATURE GRAN PERCENT AUTO 0 % (0-1); LYMPHOCYTES ABSOLUTE AUTO 0.97 K/mm3 (0.84-5.20); LYMPHOCYTES PERCENT AUTO 8 % (21-46); MONOCYTES ABSOLUTE AUTO 0.68 K/mm3 (0.16-1.47); MONOCYTES PERCENT AUTO 6 % (4-13); Mean Corpuscular HGB 31.4 pg (26.0-34.0); Mean Corpuscular HGB Conc 33.3 g/dL (31.5-36.5); Mean Corpuscular Volume 94 fL (80-100); Mean Platelet Volume 10.3 fL (9.1-12.4); NEUTROPHILS PERCENT AUTO 80 % (41-73); Platelet Count 283 K/mm3 (150-400); RDW Coefficient Variation 12.7 % (11.7-14.2); RDW Standard Deviation 44.4 fL (35.1-46.3); Red Blood Cell Count 3.98 M/mm3 (4.30-5.90); White Blood Cell Count 11.79 K/mm3 (4.00-11.30)
[2024-05-06 04:51] LABS: Albumin, Blood 2.3 g/dL (3.4-5.0); Albumin/Globulin Ratio 0.5 (0.8-1.8); Bilirubin, Total 1.1 mg/dL (0.1-1.0); Bun/Creatinine Ratio 19.2 (12.0-20.0); Calcium, Blood 8.9 mg/dL (8.5-10.1); Creatinine, Blood 1.04 mg/dL (0.60-1.20); Globulin, Blood 4.3 g/dL (2.2-4.0); Potassium, Blood 3.8 mmol/L (3.5-5.5); Total Protein, Blood 6.6 g/dL (6.4-8.2)
--- NOTE | 2024-05-06 05:05 | NUR ---
SHIFT SUMMARY PT A&O X4, ABLE TO MAKE NEEDS KNOWN, COOPERATIVE WITH CARES. VSS, AFEBRILE, SPO2 >90% 8-10L HFNC OR BIPAP WITH FIO2 40%. PT ABLE TO WEAR HFNC FOR MOST OF SHIFT. BACK PAIN MEDICATED PER EMAR. NO ACUTE EVENTS THIS SHIFT. PT IS RESTING QUIETLY IN BED, CALL LIGHT IN REACH, BREATHING EVEN AND UNLABORED.
[2024-05-06 07:54] VITALS: BP 140/86
[2024-05-06 12:15] VITALS: BP 105/64
[2024-05-06 15:13] VITALS: BP 144/91
[2024-05-06] MEDS ORDERED: Furosemide 10 MG / ML 2ML Vial IV SCH (18:00)
--- NOTE | 2024-05-06 18:12 | NUR ---
SHIFT SUMMARY PT A/OX4 AND COOPERATIVE OF CARE. PT ABLE TO EXPRESS NEEDS AND CALLS APPROPIATE. PT INDEPENDENT IN ROOM AND BED. PT HAD SLIGHT FEVER DURING BEGINNING OF SHIFT. OTHER VSS THROUGHOUT SHIFT WITH O2 SATS IN THE 90'S ON 8-12L HFNC. NO REPORT OF CHEST PAIN/PRESSURE THROUGHOUT SHIFT. NO REPORT OF SOB. PT SLEPT FOR HALF OF SHIFT PER PT REQUEST.
[2024-05-06 18:41] LABS: Bun/Creatinine Ratio 17.9 (12.0-20.0); Calcium, Blood 9.1 mg/dL (8.5-10.1); Creatinine, Blood 1.06 mg/dL (0.60-1.20); Potassium, Blood 3.6 mmol/L (3.5-5.5)
[2024-05-06 20:04] VITALS: BP 137/82
[2024-05-06 23:50] VITALS: BP 94/64
[2024-05-07 04:15] LABS: BASOPHILS ABSOLUTE AUTO 0.03 K/mm3 (0.00-0.23); BASOPHILS PERCENT AUTO 0 % (0-2); EOSINOPHILS ABSOLUTE AUTO 0.65 K/mm3 (0.00-0.68); EOSINOPHILS PERCENT AUTO 7 % (0-6); Hematocrit 35.7 % (37.0-53.0); Hemoglobin 11.9 g/dL (13.5-17.5); IMMATURE GRAN ABSOLUTE AUTO 0.02 K/mm3 (0.00-0.10); IMMATURE GRAN PERCENT AUTO 0 % (0-1); LYMPHOCYTES ABSOLUTE AUTO 1.17 K/mm3 (0.84-5.20); LYMPHOCYTES PERCENT AUTO 13 % (21-46); MONOCYTES ABSOLUTE AUTO 0.66 K/mm3 (0.16-1.47); MONOCYTES PERCENT AUTO 8 % (4-13); Mean Corpuscular HGB 31.6 pg (26.0-34.0); Mean Corpuscular HGB Conc 33.3 g/dL (31.5-36.5); Mean Corpuscular Volume 95 fL (80-100); Mean Platelet Volume 10.9 fL (9.1-12.4); NEUTROPHILS ABSOLUTE AUTO 6.32 K/mm3 (1.96-9.15); NEUTROPHILS PERCENT AUTO 72 % (41-73); Platelet Count 295 K/mm3 (150-400); RDW Coefficient Variation 12.9 % (11.7-14.2); RDW Standard Deviation 44.5 fL (35.1-46.3); Red Blood Cell Count 3.77 M/mm3 (4.30-5.90); White Blood Cell Count 8.85 K/mm3 (4.00-11.30)
[2024-05-07 04:50] LABS: Albumin, Blood 2.3 g/dL (3.4-5.0); Albumin/Globulin Ratio 0.5 (0.8-1.8); Bilirubin, Total 0.9 mg/dL (0.1-1.0); Bun/Creatinine Ratio 17.1 (12.0-20.0); Calcium, Blood 8.9 mg/dL (8.5-10.1); Creatinine, Blood 1.11 mg/dL (0.60-1.20); Globulin, Blood 4.3 g/dL (2.2-4.0); Total Protein, Blood 6.6 g/dL (6.4-8.2)
[2024-05-07 04:59] VITALS: BP 133/83
--- NOTE | 2024-05-07 06:52 | NUR ---
PT STABLE THROUGHOUT THE SHIFT. PT TOLERATING O2 AT 8L BY NASAL CANNULA. NO BIPAP NEEDED OVER NIGHT. VITAL SIGNS REMAINED STABLE. PT DOES DESAT WITH EXERTION OR WITH COUGHING AND RECOVERS SLOWLY. NO ACUTE DYSPNEA REPORTED BY PT. PT ABLE TO SPEAK IN FULL SENTENCES. PT REMAINS AOX4, INDEPENDENT AT BEDSIDE. PT DID HAVE GOOD DIURESIS OVER THE SHIFT. POWER GLIDE BLOOD RETURN NOTED AT END OF SHIFT. LUNG SOUNDS IMPROVING.
[2024-05-07 07:25] VITALS: BP 140/88
[2024-05-07 11:15] VITALS: BP 104/72
[2024-05-07] MEDS ORDERED: Potassium Chloride 10 Meq Tablet SA PO SCH (17:00)
[2024-05-07 17:26] VITALS: BP 143/90
--- NOTE | 2024-05-07 17:52 | NUR ---
END OF SHIFT NOTE: NO ACUTE EVENTS TODAY. PT A/OX4, ABLE TO COMMUNICATE NEEDS W/ STAFF. HR 80-90'S, SINUS ON TELE. BP STABLE, MAP >65. DENIES CHEST PAIN/PRESSURE. SPO2 88-92% ON 8-9L VIA HFNC. PT DID DESAT TO 60-70'S ON SEVERAL OCCASIONS W/ COUGHING SPELLS, ABLE TO RECOVER IN 2-3 MINUTES. PT DID NOT REQUIRE BIPAP AT ALL THIS SHIFT. ABLE TO VOID IN URINAL INDEPENDENTLY, >2500 ML OUTPUT THIS SHIFT. [address]. UP TO RECLINER THIS PM FOR DINNER W/ SIGNIFICANT OTHER AT BEDSIDE. C/O BACK PAIN THIS SHIFT, MEDICATED PER EMAR. NO OTHER NEEDS AT THIS TIME. CALL LIGHT IN REACH.
[2024-05-07 20:07] VITALS: BP 140/85
[2024-05-08] VITALS (7 sets, daily range): BP systolic 103–138; BP diastolic 61–85
--- NOTE | 2024-05-08 05:13 | NUR ---
SHIFT SUMMARY ASSUMED CARE OF PT AT 1900. PT A&O4, VSS AND ON 8L NC SATTING AT 97%. PT CALLED REQUESTING A LARGE SODA FROM [employer]. EDUCATED PT ON FLUID RESTRICTION AND PT STATED HE HAS DELIBERATELY NOT TAKEN MUCH DURING THE DAY SO THAT HE CAN ENJOY HIS LARGE SODA WITH A MOVIE IN THE EVENINGS. PT STATED HE HAS DRANK ONLY HAD 3 JUICES AND MAYBE 100 MLS OF WATER WITH HIS MEDS. AFTER REVIEWING PT'S CHART, 450ML WAS NOTED DURING DAYSHIFT, 750ML OF SODA WAS GIVEN TO THE PT'S AT HIS REQUEST. EDUCATED THE PT ONCE AGAIN IN THE IMPORTANCE OF MAINTAINING A 1.2L FLUID RESTRICTION AND PT STATED HE IS AWARE. PT'S BED IN LOWEST POSITION AND CALL LIGHT WITHIN REACH.
[2024-05-08 05:55] LABS: BASOPHILS ABSOLUTE AUTO 0.04 K/mm3 (0.00-0.23); BASOPHILS PERCENT AUTO 0 % (0-2); EOSINOPHILS ABSOLUTE AUTO 0.63 K/mm3 (0.00-0.68); EOSINOPHILS PERCENT AUTO 6 % (0-6); Hematocrit 35.9 % (37.0-53.0); Hemoglobin 12.2 g/dL (13.5-17.5); IMMATURE GRAN ABSOLUTE AUTO 0.04 K/mm3 (0.00-0.10); IMMATURE GRAN PERCENT AUTO 0 % (0-1); LYMPHOCYTES ABSOLUTE AUTO 1.21 K/mm3 (0.84-5.20); LYMPHOCYTES PERCENT AUTO 12 % (21-46); MONOCYTES ABSOLUTE AUTO 0.77 K/mm3 (0.16-1.47); MONOCYTES PERCENT AUTO 8 % (4-13); Mean Corpuscular HGB 31.4 pg (26.0-34.0); Mean Corpuscular Volume 92 fL (80-100); Mean Platelet Volume 10.4 fL (9.1-12.4); NEUTROPHILS ABSOLUTE AUTO 7.53 K/mm3 (1.96-9.15); NEUTROPHILS PERCENT AUTO 74 % (41-73); Platelet Count 330 K/mm3 (150-400); RDW Coefficient Variation 12.7 % (11.7-14.2); Red Blood Cell Count 3.89 M/mm3 (4.30-5.90); White Blood Cell Count 10.22 K/mm3 (4.00-11.30)
[2024-05-08 06:20] LABS: Albumin, Blood 2.3 g/dL (3.4-5.0); Albumin/Globulin Ratio 0.5 (0.8-1.8); Bilirubin, Total 0.9 mg/dL (0.1-1.0); Bun/Creatinine Ratio 15.3 (12.0-20.0); Calcium, Blood 8.7 mg/dL (8.5-10.1); Creatinine, Blood 0.98 mg/dL (0.60-1.20); Globulin, Blood 4.3 g/dL (2.2-4.0); Total Protein, Blood 6.6 g/dL (6.4-8.2)
[2024-05-08 08:56] LABS: Acinetobacter baumannii DNA Not Detected copy/mL (NOT DETECT); Enterobacter cloacae DNA Not Detected copy/mL (NOT DETECT); Escherichia coli DNA Not Detected copy/mL (NOT DETECT); Haemophilus influenzae DNA Not Detected copy/mL (NOT DETECT); Klebsiella aerogenes DNA Not Detected copy/mL (NOT DETECT); Klebsiella oxytoca DNA Not Detected copy/mL (NOT DETECT); Klebsiella pneumoniae DNA Not Detected copy/mL (NOT DETECT); Moraxella catarrhalis DNA Not Detected copy/mL (NOT DETECT); Proteus sp DNA Not Detected copy/mL (NOT DETECT); Pseudomonas aeruginosa DNA Not Detected copy/mL (NOT DETECT); Serratia marcescens DNA Not Detected copy/mL (NOT DETECT); Streptococcus agalactiae DNA Not Detected copy/mL (NOT DETECT); Streptococcus pneumoniae DNA Not Detected copy/mL (NOT DETECT); Streptococcus pyogenes DNA Not Detected copy/mL (NOT DETECT); mecA/C and MREJ Resist Gene Detected
[2024-05-08 08:57] LABS: Adenovirus DNA Not Detected (NOT DETECT); Chlamydia pneumonia Not Detected (NOT DETECT); Human Coronavirus RNA Detected (NOT DETECT); Human Metapneumovirus RNA Not Detected (NOT DETECT); Legionella pneumophila Not Detected (NOT DETECT); Mycoplasma pneumoniae Not Detected (NOT DETECT); Rhinovirus+Enterovirus RNA Not Detected (NOT DETECT)
[2024-05-08 08:58] LABS: Influenza virus A RNA Not Detected (NOT DETECT); Influenza virus B RNA Not Detected (NOT DETECT); Parainfluenza virus RNA Not Detected (NOT DETECT); Respiratory syncytial Vir RNA Not Detected (NOT DETECT)
[2024-05-08 08:59] LABS: Staphylococcus aureus DNA Detected Bin 10^5 copy/mL (NOT DETECT)
[2024-05-08] MEDS ORDERED: Vancomycin HCL 2,000 MG in NS 500 ML IV ONE (12:10)
[2024-05-08 15:48] LABS: HIV 1,2 COMBO ANTIGEN/ANTIBODY Negative (Negative)
--- NOTE | 2024-05-08 17:42 | NUR ---
END OF SHIFT NOTE: NO ACUTE EVENTS THIS SHIFT. PT A/OX4, ABLE TO COMMUNICATE NEEDS W/ STAFF. VSS. HR 70'S, SINUS ON TELE. SBP 100-130'S, MAP >65. DENIES CHEST PAIN/PRESSURE. O2 TITRATED DOWN FROM 9L AT START OF SHIFT TO 3L AT TIME OF THIS NOTE, MAINTAINING SPO2 >90% AT REST. DRY COUGH NOTED. PT WAS PLACED IN ISOLATION THIS SHIFT DUE TO POSITIVE SPUTUM SAMPLE. DIURESIS CONTINUES, >1900ML OUTPUT IN URINAL SO FAR THIS SHIFT. 1200ML FLUID RESTRICTION REMAINS IN PLACE, PT INDEPENDENT W/ ADL'S AT THE BEDSIDE, ABLE TO REPOSITION SELF INDEPENDENTLY IN BED. S/O ABLE TO VISIT TODAY; PT STATES HE IS ANXIOUSLY AWAITING DISCHARGE FROM THE HOSPITAL. NO OTHER NEEDS AT THIS TIME. PT RESTING IN BED AT THIS TIME W/ CALL LIGHT IN REACH.
[2024-05-09] VITALS (7 sets, daily range): BP systolic 91–130; BP diastolic 54–85
[2024-05-09] MEDS ORDERED: Vancomycin HCL 1,500 MG in NS 250 ML IV SCH (02:00)
--- NOTE | 2024-05-09 04:37 | NUR ---
SHIFT SUMMARY RESUMED CARE OF PT AT 1900. PT A&O4, VSS WITH THE EXCEPTION OF PT BEING ON 5L NC UNTIL OVERNIGHT WHEN PT HAD TO GO UP TO 8L TO SUSTAIN 94% O2. NO ACUTE EVENTS OVERNIGHT. PT ANXIOUS TO RETURN HOME AND TO WORK. PT'S BED IN LOWEST POSITION AND CALL LIGHT WITHIN REACH.
[2024-05-09 05:26] LABS: BASOPHILS ABSOLUTE AUTO 0.04 K/mm3 (0.00-0.23); BASOPHILS PERCENT AUTO 1 % (0-2); EOSINOPHILS ABSOLUTE AUTO 0.65 K/mm3 (0.00-0.68); EOSINOPHILS PERCENT AUTO 9 % (0-6); Hematocrit 34.7 % (37.0-53.0); Hemoglobin 11.8 g/dL (13.5-17.5); IMMATURE GRAN ABSOLUTE AUTO 0.02 K/mm3 (0.00-0.10); IMMATURE GRAN PERCENT AUTO 0 % (0-1); LYMPHOCYTES ABSOLUTE AUTO 1.17 K/mm3 (0.84-5.20); LYMPHOCYTES PERCENT AUTO 16 % (21-46); MONOCYTES ABSOLUTE AUTO 0.77 K/mm3 (0.16-1.47); MONOCYTES PERCENT AUTO 10 % (4-13); Mean Corpuscular HGB 31.4 pg (26.0-34.0); Mean Corpuscular Volume 92 fL (80-100); Mean Platelet Volume 10.2 fL (9.1-12.4); NEUTROPHILS ABSOLUTE AUTO 4.84 K/mm3 (1.96-9.15); NEUTROPHILS PERCENT AUTO 65 % (41-73); Platelet Count 333 K/mm3 (150-400); RDW Coefficient Variation 12.5 % (11.7-14.2); RDW Standard Deviation 42.6 fL (35.1-46.3); Red Blood Cell Count 3.76 M/mm3 (4.30-5.90); White Blood Cell Count 7.49 K/mm3 (4.00-11.30)
[2024-05-09 05:46] LABS: Bun/Creatinine Ratio 14.4 (12.0-20.0); Calcium, Blood 8.7 mg/dL (8.5-10.1); Creatinine, Blood 1.04 mg/dL (0.60-1.20); Potassium, Blood 3.6 mmol/L (3.5-5.5)
--- NOTE | 2024-05-09 18:19 | NUR ---
SHIFT SUMMARY PT IS A+O X4, REPOSITIONS SELF IN BED AND CHAIR, AMBULATES INDEPENT IN ROOM WHEN NOT HOOKED TO IV LINES, USES CALL LIGHT. VSS THROUGHTOUT SHIFT. PT WAS DECREASED FROM 7 LITTERS OXYGEN TO ROOM AIR W/ A GOAL OF 86% O2 AND ABOVE. PT ASKED TO PUT O2 BACK ON WHILE RESTING, CURRENTLY ON 4 LITERS AT 97% ON MONITOR. LUNG SOUNDS CLEAR, DIM IN BASES. PT VOIDING INTO URINAL W/OUT ASSIT. DURING SHIFT. PT IS STRICK I&O'S W/ FLUID RESTRICTION OF 1200ML. PT HAS REQUESTED PAIN MEDICATION ONCE DURING SHIFT FOR CHRONIC BACK PAIN. AT THIS TIME PT IS SITTING UP IN RECLINER WATCHING TV, CALL LIGHT IN REACH. WILL CONTINUE TO MONITOR UNTIL END OF SHIFT.
--- NOTE | 2024-05-09 21:43 | NUR ---
Assumed care of pt at 1900 Pt sitting up in chair- using his laptop/computer. Pt is aox4, cooperative, and talkative. Sts he is feeling well and expressing gratitude as well as hoping to go home tomorrow. Pt is on room air- sats >92%. Lungs clear t/o. Pt is on tele monitor- NSR. BP stable. PT is using urinal and restroom independently. Sts he will use call light for further needs.
[2024-05-10 02:12] LABS: Vancomycin, Trough 19.1 ug/mL (5.0-10.0)
[2024-05-10] MEDS ORDERED: Vancomycin HCL 1,250 MG in NS 250 ML IV SCH (02:45)
[2024-05-10 04:06] VITALS: BP 139/81
[2024-05-10 04:28] LABS: BASOPHILS ABSOLUTE AUTO 0.05 K/mm3 (0.00-0.23); BASOPHILS PERCENT AUTO 1 % (0-2); EOSINOPHILS ABSOLUTE AUTO 0.48 K/mm3 (0.00-0.68); EOSINOPHILS PERCENT AUTO 6 % (0-6); Hematocrit 35.8 % (37.0-53.0); Hemoglobin 12.2 g/dL (13.5-17.5); IMMATURE GRAN ABSOLUTE AUTO 0.02 K/mm3 (0.00-0.10); IMMATURE GRAN PERCENT AUTO 0 % (0-1); LYMPHOCYTES ABSOLUTE AUTO 1.27 K/mm3 (0.84-5.20); LYMPHOCYTES PERCENT AUTO 17 % (21-46); MONOCYTES ABSOLUTE AUTO 0.74 K/mm3 (0.16-1.47); MONOCYTES PERCENT AUTO 10 % (4-13); Mean Corpuscular HGB 31.8 pg (26.0-34.0); Mean Corpuscular HGB Conc 34.1 g/dL (31.5-36.5); Mean Corpuscular Volume 93 fL (80-100); NEUTROPHILS ABSOLUTE AUTO 4.97 K/mm3 (1.96-9.15); NEUTROPHILS PERCENT AUTO 66 % (41-73); Platelet Count 360 K/mm3 (150-400); RDW Coefficient Variation 12.6 % (11.7-14.2); RDW Standard Deviation 43.7 fL (35.1-46.3); Red Blood Cell Count 3.84 M/mm3 (4.30-5.90); White Blood Cell Count 7.53 K/mm3 (4.00-11.30)
--- NOTE | 2024-05-10 05:06 | NUR ---
End of shift summary No acute events overnight. PT stayed up in chair using his laptop. Alert, oriented and cooperative w/ care. Pt remained on room air t/o shift, maintained sats>92%. Pt NSR, bp stable. Afebrile during shift. PT used urinal independently w/ good output. PT required one dose of prn pain medication for chronic low back pain. Powerglide to RY is saline locked. Call light w/ in reach. Plan of care ongoing.
[2024-05-10 06:35] LABS: Albumin, Blood 2.5 g/dL (3.4-5.0); Albumin/Globulin Ratio 0.5 (0.8-1.8); Bilirubin, Total 0.6 mg/dL (0.1-1.0); Bun/Creatinine Ratio 15.7 (12.0-20.0); Calcium, Blood 8.4 mg/dL (8.5-10.1); Creatinine, Blood 1.15 mg/dL (0.60-1.20); Globulin, Blood 4.7 g/dL (2.2-4.0); Potassium, Blood 3.6 mmol/L (3.5-5.5); Total Protein, Blood 7.2 g/dL (6.4-8.2)
[2024-05-10 09:05] VITALS: BP 131/78
[2024-05-10 12:02] VITALS: BP 118/68
[2024-05-10 16:03] VITALS: BP 106/68
[2024-05-10] MEDS ORDERED: VISBIOME 112.51 EACH PO (16:11)
[2024-05-10] MEDS ORDERED: FURO40 PO (16:12)
[2024-05-10] MEDS ORDERED: SULTRIDS PO (16:13)
--- NOTE | 2024-05-10 17:19 | NUR ---
PROGRESS NOTES PT DISCHARGE PAPERS DICUSSED W/ HIM AND GIRLFRIEND WITH PT PERMISSTION. 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 PERSONAL ITEMS COLLECTED, PT AMBULATED OUT W/ ITEMS IN HAND.
== END 2024-05-10 17:00 | disposition home or self-care (01) | DRG 871 ==
LOC: ER 12:47 → PCU 19:53 → ICUE 19:53 → PCU 22:05 → ICUE 05-02 06:19 → PCU 05-03 16:40
PROVIDERS: Family Medicine; Family Medicine Adult Medicine; Hospitalist; Internal Medicine; Physician Assistant; Student in an Organized Health Care Education/Training Program; ADMIT Internal Medicine
DX: B37.7 Candidal sepsis (principal); I50.31 Acute diastolic (congestive) heart failure; J18.9 Pneumonia, unspecified organism; J96.01 Acute respiratory failure with hypoxia; J45.901 Unspecified asthma with (acute) exacerbation; B37.1 Pulmonary candidiasis; R65.20 Severe sepsis without septic shock; I34.0 Nonrheumatic mitral (valve) insufficiency; R59.0 Localized enlarged lymph nodes; M54.30 Sciatica, unspecified side; R73.9 Hyperglycemia, unspecified; T38.0X5A Adverse effect of glucocorticoids and synthetic analogues, initial encounter; E87.6 Hypokalemia; Z79.52 Long term (current) use of systemic steroids; Z87.01 Personal history of pneumonia (recurrent); M54.9 Dorsalgia, unspecified; I11.0 Hypertensive heart disease with heart failure
CPT/HCPCS: 0202U; 0241U; 36415; 71045; 71046; 71260; 72131; 80048; 80053; 80069; 80202; 82947; 83605; 83735; 83880; 84100; 84145; 84443; 85025; 85027; 85379; 87040; 87070; 87205; 87389; 87449; 87633; 93005; 93010; 93306; 93971; 94640; 94660; 94664; 94760; 94762; 96365-59; 96367-59; 96375-59; 99285-25; A9270; C1751; J0360; J0456; J0696; J1650; J1885; J1940; J2470; J2543; J2919; J3370; J3480; J7030; J7040; J7050; J7060; Q9967; U0002

== ENCOUNTER 2024-08-14 02:54 | Emergency (ER) | payer OTHER ==
[~2024-08-14] VITALS: Ht 177.8 cm; Wt 113.4 kg
[~2024-08-14 02:54] MED LIST changes: +ALBU2.5V5 INH; +ALLO100 PO; +AMLO5 PO; +CYCL10 PO; +FLONASE ALLERG9.9 ML; +FURO40 PO; +IBUP800 PO; +MOME220I INH; +PREG75 PO; +Prinivil10 MG PO; +SULTRIDS PO; +THERA-D2000 UNIT PO; +TIOT18 INH; +TIZA4 PO; +VISBIOME 112.51 EACH PO
[2024-08-14] MEDS ORDERED: Ipratropium/Albuterol SulF 2.5-0.5MG/3 ML Amp INH PRN (03:15)
[2024-08-14 04:14] LABS: Bilirubin, Total 1.2 mg/dL (0.1-1.0); Bun/Creatinine Ratio 7.4 (12.0-20.0); Calcium, Blood 9.2 mg/dL (8.5-10.1); Creatinine, Blood 0.81 mg/dL (0.60-1.20); Potassium, Blood 4.5 mmol/L (3.5-5.5)
[2024-08-14 04:20] LABS: BASOPHILS ABSOLUTE AUTO 0.13 K/mm3 (0.00-0.23); BASOPHILS PERCENT AUTO 1 % (0-2); EOSINOPHILS ABSOLUTE AUTO 1.55 K/mm3 (0.00-0.68); EOSINOPHILS PERCENT AUTO 14 % (0-6); Hematocrit 42.3 % (37.0-53.0); Hemoglobin 13.9 g/dL (13.5-17.5); IMMATURE GRAN ABSOLUTE AUTO 0.04 K/mm3 (0.00-0.10); IMMATURE GRAN PERCENT AUTO 0 % (0-1); LYMPHOCYTES ABSOLUTE AUTO 1.62 K/mm3 (0.84-5.20); LYMPHOCYTES PERCENT AUTO 14 % (21-46); MONOCYTES ABSOLUTE AUTO 1.04 K/mm3 (0.16-1.47); MONOCYTES PERCENT AUTO 9 % (4-13); Mean Corpuscular HGB 28.3 pg (26.0-34.0); Mean Corpuscular HGB Conc 32.9 g/dL (31.5-36.5); Mean Corpuscular Volume 86 fL (80-100); Mean Platelet Volume 9.7 fL (9.1-12.4); NEUTROPHILS ABSOLUTE AUTO 6.88 K/mm3 (1.96-9.15); NEUTROPHILS PERCENT AUTO 61 % (41-73); Platelet Count 297 K/mm3 (150-400); RDW Coefficient Variation 13.4 % (11.7-14.2); Red Blood Cell Count 4.92 M/mm3 (4.30-5.90); White Blood Cell Count 11.26 K/mm3 (4.00-11.30)
[2024-08-14] MEDS ORDERED: Doxycycline Hyclate 100 MG TAB PO ONE (04:25)
[2024-08-14] MEDS ORDERED: Amoxicillin/Clavulanate K 875 MG Tab PO ONE (04:25)
[2024-08-14] MEDS ORDERED: AMOCLA875 PO (04:25)
[2024-08-14] MEDS ORDERED: Doxycycline Mo100 M1 PO (04:25)
[2024-08-14] MEDS ORDERED: ALBU2.5V5 INH (04:26)
[2024-08-14 04:40] VITALS: BP 165/88
[2024-08-14] MEDS ORDERED: RX Prepack Albuterol 1 PREPACK/6.7 GM INH UD ONE (04:40)
== END 2024-08-14 04:38 | disposition home or self-care (01) ==
LOC: ER 02:54
PROVIDERS: Emergency Medicine
DX: J18.9 Pneumonia, unspecified organism (principal); Z87.891 Personal history of nicotine dependence; I10 Essential (primary) hypertension; J45.909 Unspecified asthma, uncomplicated; Z88.8 Allergy status to other drugs, medicaments and biological substances; Z91.09 Other allergy status, other than to drugs and biological substances; Z79.899 Other long term (current) drug therapy
CPT/HCPCS: 71045; 80053; 84484; 85025; 93005; 93010; 94640; 94664; 99285-25; A9270

== ENCOUNTER 2024-11-09 23:11 | Inpatient (IN) | payer OTHER ==
[~2024-11-09] VITALS: Ht 172.7 cm; Wt 90.7 kg
[~2024-11-09 23:11] MED LIST changes: +AMOCLA875 PO; +Doxycycline Mo100 M1 PO
[2024-11-09] MEDS ORDERED: Ipratropium/Albuterol SulF 2.5-0.5MG/3 ML Amp INH ONE (23:15)
[2024-11-09] MEDS ORDERED: Albuterol 2.5 MG/3 ML VIAL INH ONE (23:25)
[2024-11-09] MEDS ORDERED: ELIQUIS5 M2 PO (23:32)
[2024-11-09] MEDS ORDERED: Flonase 0.05% N16 GM (23:32)
[2024-11-09] MEDS ORDERED: ZYRTEC10 M2 PO (23:33)
[2024-11-09] MEDS ORDERED: METO50ER PO (23:33)
[2024-11-09] MEDS ORDERED: BENZ100A PO (23:33)
[2024-11-09 23:43] LABS: Base Excess Venous 0.6 mmol/L; Bicarbonate Venous 24.5 mmol/L (24.0-30.0)
[2024-11-09 23:44] LABS: BASOPHILS ABSOLUTE AUTO 0.18 K/mm3 (0.00-0.23); BASOPHILS PERCENT AUTO 2 % (0-2); EOSINOPHILS ABSOLUTE AUTO 1.83 K/mm3 (0.00-0.68); EOSINOPHILS PERCENT AUTO 16 % (0-6); Hematocrit 50.9 % (37.0-53.0); IMMATURE GRAN ABSOLUTE AUTO 0.03 K/mm3 (0.00-0.10); IMMATURE GRAN PERCENT AUTO 0 % (0-1); LYMPHOCYTES ABSOLUTE AUTO 1.71 K/mm3 (0.84-5.20); LYMPHOCYTES PERCENT AUTO 15 % (21-46); MONOCYTES ABSOLUTE AUTO 0.72 K/mm3 (0.16-1.47); MONOCYTES PERCENT AUTO 6 % (4-13); Mean Corpuscular HGB 29.2 pg (26.0-34.0); Mean Corpuscular HGB Conc 33.4 g/dL (31.5-36.5); Mean Corpuscular Volume 88 fL (80-100); Mean Platelet Volume 10.5 fL (9.1-12.4); NEUTROPHILS ABSOLUTE AUTO 7.12 K/mm3 (1.96-9.15); NEUTROPHILS PERCENT AUTO 61 % (41-73); Platelet Count 290 K/mm3 (150-400); RDW Coefficient Variation 14.7 % (11.7-14.2); RDW Standard Deviation 47.4 fL (35.1-46.3); Red Blood Cell Count 5.82 M/mm3 (4.30-5.90); White Blood Cell Count 11.59 K/mm3 (4.00-11.30)
[2024-11-10 00:05] LABS: Albumin, Blood 3.6 g/dL (3.4-5.0); Albumin/Globulin Ratio 0.9 (0.8-1.8); Bilirubin, Total 0.9 mg/dL (0.1-1.0); Bun/Creatinine Ratio 5.8 (12.0-20.0); Calcium, Blood 8.2 mg/dL (8.5-10.1); Creatinine, Blood 0.69 mg/dL (0.60-1.20); Globulin, Blood 3.9 g/dL (2.2-4.0); Potassium, Blood 3.6 mmol/L (3.5-5.5); Total Protein, Blood 7.5 g/dL (6.4-8.2)
[2024-11-10] MEDS ORDERED: MethylPREDNISolone Sod Succ 125 MG Vial IV ONE (00:25)
[2024-11-10] MEDS ORDERED: Ipratropium Bromide INH 0.02% 0.5 mg/2.5ML Vial INH SCH (00:55)
[2024-11-10] MEDS ORDERED: Albuterol 2.5 MG/3 ML VIAL INH SCH (00:55)
[2024-11-10] MEDS ORDERED: NS 1,000 ML IV SCH ×2 (00:55→02:00)
[2024-11-10] MEDS ORDERED: Benzonatate 100 MG Cap PO PRN (01:55)
[2024-11-10] MEDS ORDERED: PredniSONE 20 MG Tab PO SCH (02:14)
[2024-11-10] MEDS ORDERED: Loratadine 10 MG Tab PO PRN (02:35)
[2024-11-10] MEDS ORDERED: NS 500 ML IV ONE (03:00)
[2024-11-10] MEDS ORDERED: Ipratropium/Albuterol SulF 2.5-0.5MG/3 ML Amp INH SCH (03:55)
[2024-11-10] MEDS ORDERED: Albuterol 2.5 MG/3 ML VIAL INH PRN (03:55)
[2024-11-10] MEDS ORDERED: Cholecalciferol 1000 Unit Tablet (=25MCG) PO SCH (09:00)
[2024-11-10] MEDS ORDERED: AmLODIPine Besylate 5 MG Tab PO SCH (09:00)
[2024-11-10] MEDS ORDERED: Apixaban 5 MG Tab PO SCH (09:00)
[2024-11-10] MEDS ORDERED: Lisinopril 10 MG Tab PO SCH (09:00)
[2024-11-10] MEDS ORDERED: Fluticasone 0.05% Nasal Spray SCH (09:00)
[2024-11-10] MEDS ORDERED: Metoprolol Succinate 50 MG TABCR PO SCH (09:00)
[2024-11-10] MEDS ORDERED: Azithromycin 250 MG Tab PO SCH (11:48)
[2024-11-10] MEDS ORDERED: Azithromycin 200 MG/5 ML SUSP 5ML UDC PO SCH (12:00)
[2024-11-10 12:36] LABS: Adenovirus Not Detected (NOT DETECT); Bordetella pertussis Not Detected (NOT DETECT); Chlamydophila pneumoniae Not Detected (NOT DETECT); Coronavirus 229E Not Detected (NOT DETECT); Coronavirus HKU1 Not Detected (NOT DETECT); Coronavirus NL63 Not Detected (NOT DETECT); Coronavirus OC43 Not Detected (NOT DETECT); Human Metapneumovirus Not Detected (NOT DETECT); Human Rhinovirus/Enterovirus Not Detected (NOT DETECT); Influenza A/2009-H1 Not Detected (NOT DETECT); Influenza A/H1 Not Detected (NOT DETECT); Influenza A/H3 Not Detected (NOT DETECT); Influenza B Not Detected (NOT DETECT); Mycoplasma pneumoniae Not Detected (NOT DETECT); Parainfluenza Virus 1 Not Detected (NOT DETECT); Parainfluenza Virus 2 Not Detected (NOT DETECT); Parainfluenza Virus 3 Not Detected (NOT DETECT); Parainfluenza Virus 4 Not Detected (NOT DETECT); Respiratory Syncytial Virus Not Detected (NOT DETECT); SARS-Cov-2 (COVID-19), BioFire Not Detected (NOT DETECT)
[2024-11-10 13:38] VITALS: BP 160/99
--- NOTE | 2024-11-10 13:39 | NUR ---
PT TO ROOM 228. PLACED ON 4LNC. LUNGS WITH INSPIRATORY/EXPIRATORY WHEEZES ALL MOORE. SL PRESENT L AC. PT ORIENTED TO ROOM
[2024-11-10] MEDS ORDERED: Norco 10-325 T1 EACH PO (14:32)
[2024-11-10] MEDS ORDERED: HYDROcodone 10-APAP 325 TAB PO PRN (14:45)
[2024-11-10 14:52] VITALS: BP 143/103
[2024-11-10] MEDS ORDERED: MethylPREDNISolone Sod Succ 125 MG Vial IV SCH (16:00)
--- NOTE | 2024-11-10 16:46 | NUR ---
end of shift Pt resting comfortably. denies complaints. Will continue to monitor.
[2024-11-10 20:18] VITALS: BP 140/94
[2024-11-10] MEDS ORDERED: Montelukast Sodium 10 MG Tab PO SCH (21:00)
[2024-11-10 23:17] VITALS: BP 143/90
[2024-11-11] MEDS ORDERED: Saline Nasal Spray 45 ML PRN (03:30)
[2024-11-11 03:32] VITALS: BP 137/95
[2024-11-11 05:59] LABS: BASOPHILS ABSOLUTE AUTO 0.01 K/mm3 (0.00-0.23); BASOPHILS PERCENT AUTO 0 % (0-2); EOSINOPHILS PERCENT AUTO 0 % (0-6); Hematocrit 43.5 % (37.0-53.0); Hemoglobin 14.6 g/dL (13.5-17.5); IMMATURE GRAN ABSOLUTE AUTO 0.05 K/mm3 (0.00-0.10); IMMATURE GRAN PERCENT AUTO 0 % (0-1); LYMPHOCYTES ABSOLUTE AUTO 0.68 K/mm3 (0.84-5.20); LYMPHOCYTES PERCENT AUTO 5 % (21-46); MONOCYTES ABSOLUTE AUTO 0.59 K/mm3 (0.16-1.47); MONOCYTES PERCENT AUTO 5 % (4-13); Mean Corpuscular HGB 29.4 pg (26.0-34.0); Mean Corpuscular HGB Conc 33.6 g/dL (31.5-36.5); Mean Corpuscular Volume 88 fL (80-100); Mean Platelet Volume 11.2 fL (9.1-12.4); NEUTROPHILS ABSOLUTE AUTO 11.26 K/mm3 (1.96-9.15); NEUTROPHILS PERCENT AUTO 89 % (41-73); Platelet Count 250 K/mm3 (150-400); RDW Standard Deviation 48.1 fL (35.1-46.3); Red Blood Cell Count 4.97 M/mm3 (4.30-5.90); White Blood Cell Count 12.59 K/mm3 (4.00-11.30)
[2024-11-11 06:20] LABS: Albumin, Blood 3.3 g/dL (3.4-5.0); Albumin/Globulin Ratio 0.9 (0.8-1.8); Bilirubin, Total 0.8 mg/dL (0.1-1.0); Bun/Creatinine Ratio 17.6 (12.0-20.0); Calcium, Blood 9.1 mg/dL (8.5-10.1); Creatinine, Blood 0.74 mg/dL (0.60-1.20); Globulin, Blood 3.6 g/dL (2.2-4.0); Potassium, Blood 4.1 mmol/L (3.5-5.5); Total Protein, Blood 6.9 g/dL (6.4-8.2)
[2024-11-11 07:49] VITALS: BP 128/87
--- NOTE | 2024-11-11 07:54 | NUR ---
SHIFT SUMMARY NOC. PT ADMIT FOR RAD EXACERBATION. A/O X4. PT ON TELEMETRY AND CONT BIOX. NO EVENTS OR DESAT. PT ON 4L VIA N/C, REPORTS IMPROVEMENT IN SOB WITH TREATMENTS. PT MEDICATED FOR MOUTH/SINUS PAIN WITH ORAL NORCO X2 THIS SHIFT. PT VOIDING URINE AND AMBULATING WELL. MAKES NEEDS KNOWN, CALL LIGHT IN REACH.
[2024-11-11] MEDS ORDERED: HYDR1TAB94 PO (10:12)
[2024-11-11] MEDS ORDERED: AZIT500 PO (10:15)
[2024-11-11] MEDS ORDERED: Prednisone10 MG PO (11:33)
[2024-11-11] MEDS ORDERED: IPRAT-ALBUT 0.5-3 ML INH (11:35)
[2024-11-11] MEDS ORDERED: ALBU90OI INH (11:36)
[2024-11-11] MEDS ORDERED: FLUT1DIS8 INH (11:41)
--- NOTE | 2024-11-11 13:08 | NUR ---
discharge dc instruct reviewed with pt. stated understanding. discharge paperwork dispensed. iv dc'd intact. discharged to own recognizance with printed instruct.
== END 2024-11-11 13:14 | disposition home or self-care (01) | DRG 189 ==
LOC: ER 23:11 → ERHOLD 23:12 → ER 23:12 → ERHOLD 11-10 12:49 → SURS 11-10 12:49 → ERHOLD 11-10 12:50 → SURS 11-10 13:48
PROVIDERS: Emergency Medicine; Student in an Organized Health Care Education/Training Program; ADMIT Student in an Organized Health Care Education/Training Program
DX: J96.01 Acute respiratory failure with hypoxia (principal); J45.901 Unspecified asthma with (acute) exacerbation; M10.9 Gout, unspecified; I48.91 Unspecified atrial fibrillation; D72.829 Elevated white blood cell count, unspecified; I10 Essential (primary) hypertension; I34.0 Nonrheumatic mitral (valve) insufficiency; Z87.891 Personal history of nicotine dependence; Z79.891 Long term (current) use of opiate analgesic; Z91.048 Other nonmedicinal substance allergy status; Z79.811 Long term (current) use of aromatase inhibitors; Z88.8 Allergy status to other drugs, medicaments and biological substances; Z79.899 Other long term (current) drug therapy; Z79.01 Long term (current) use of anticoagulants; Z79.51 Long term (current) use of inhaled steroids; Z87.19 Personal history of other diseases of the digestive system; Z79.52 Long term (current) use of systemic steroids
CPT/HCPCS: 0202U; 36415; 71045; 80053; 82803; 84145; 85025; 93005; 93010; 94640; 94644; 94645; 94664; 94760; 94762; 96374; 99285-25; A9270; G0378; J2919; J7030; J7040; J7512